=== PATIENT | male | born 1945 | race African-American/Black ===

== ENCOUNTER 2016-04-05 11:47 | Inpatient (IN) | payer OTHER ==
[2016-04-05 12:05] VITALS: BMI 22.1
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
[2016-04-05] MEDS ORDERED: NICOTINE POLACRILEX 2 MG GUM BC PRN (12:55)
[2016-04-05] MEDS ORDERED: hydrOXYzine PAMOATE 50 MG CAPSULE (FP) PO PRN (12:55)
[2016-04-05] MEDS ORDERED: chlordiazePOXIDE HCL 25 MG CAPSULE PO PRN (12:55)
[2016-04-05] MEDS ORDERED: ACETAMINOPHEN 325 MG TABLET (FP) PO PRN (12:55)
[2016-04-05] MEDS ORDERED: guaiFENesin/D-METHORPHAN HB 10 ML UNIT-DOSE CUPS PO PRN (12:55)
[2016-04-05] MEDS ORDERED: chlordiazePOXIDE HCL 25 MG CAPSULE PO ONE (12:55)
[2016-04-05] MEDS ORDERED: MAG HYDROX/AL HYDROX/SIMETH 30 ML UNIT-DOSE CUP PO PRN (12:55)
[2016-04-05] MEDS ORDERED: P-EPHED 60MG/TRIPROLIDI 2.5MG TABLET PO PRN (12:55)
[2016-04-05] MEDS ORDERED: IBUPROFEN 400 MG TABLET (FP) PO PRN (12:55)
[2016-04-05] MEDS ORDERED: MAGNESIUM CITRATE 300 ML BOTTLE PO PRN (12:55)
[2016-04-05] MEDS ORDERED: MENTHOL/PHENOL 1 EACH UD MM PRN (12:55)
[2016-04-05] MEDS ORDERED: LOPERAMIDE HCL 2 MG CAPSULE PO PRN (12:55)
[2016-04-05] MEDS ORDERED: MAGNESIUM HYDROX 2400MG/30ML ORAL SUSPENSION 30 ML CUP PO PRN (12:55)
[2016-04-05] MEDS: NICOTINE 21 MG/24 HOURS TOPICAL PATCH TD SCH (15:11)
[2016-04-05] MEDS: chlordiazePOXIDE HCL 25 MG CAPSULE PO SCH ×2 (17:20→22:26)
[2016-04-05 21:03] LABS: URINE APPEARANCE CLEAR; URINE BILIRUBIN NEGATIVE (NEGATIVE); URINE COLOR COLORLESS; URINE GLUCOSE (UA) NEGATIVE (NEGATIVE); URINE KETONE NEGATIVE (NEGATIVE); URINE LEUK ESTERASE NEGATIVE (NEGATIVE); URINE NITRITE NEGATIVE (NEGATIVE); URINE PROTEIN NEGATIVE (NEGATIVE); URINE UROBILINOGEN NEGATIVE E.U./dl (0.2-1.0)
[2016-04-05 21:28] LABS: URINE BLOOD 1+ (NEGATIVE)
[2016-04-05 21:34] LABS: URINE WBC <1 /hpf (3-5)
[2016-04-05] MEDS: diphenhydrAMINE HCL 50 MG CAPSULE PO PRN (22:26)
[2016-04-05] MEDS: THIAMINE HCL 100 MG TABLET (FP) PO SCH (22:26)
[2016-04-06] MEDS: chlordiazePOXIDE HCL 25 MG CAPSULE PO SCH ×4 (06:07→22:23)
[2016-04-06 09:56] LABS: MCH 32.6 pg (25.7-33.7); MCHC 33.3 g/dl (32.0-35.9); MEAN CELL VOLUME 98.1 fl (80-96); MEAN PLT VOLUME 9.1 fl (7.5-11.1); PLATELET COUNT 283 K/MM3 (134-434); RDW 15.2 % (11.9-15.9); WHITE BLOOD COUNT 8.1 K/mm3 (4.0-10.0)
[2016-04-06 10:01] LABS: ANION GAP 7 (8-16); CO2 29 mmol/L (21-32); GLUCOSE,RANDOM 109 mg/dL (74-106); SGOT/AST 41 U/L (15-37); SGPT/ALT 31 U/L (12-78)
[2016-04-06 10:03] LABS: ALK PHOS 69 U/L (45-117); BILIRUBIN,TOTAL 0.4 mg/dL (0.2-1.0); CREATININE 0.8 mg/dL (0.7-1.3); TOT PROT 6.6 g/dl (6.4-8.2)
[2016-04-06] MEDS: PRENATAL VITAMINS W/ FOLIC ACID TABLET (FP) PO SCH (10:12)
[2016-04-06] MEDS: NICOTINE 21 MG/24 HOURS TOPICAL PATCH TD SCH (10:12)
[2016-04-06 10:45] LABS: HIV 1 & 2 AB NEGATIVE; HIV 1 AGp24 NEGATIVE
--- NOTE | 2016-04-06 12:05 | EKG ---
Test Reason : Blood Pressure : / mmHG Vent. Rate : 077 BPM Atrial Rate : 077 BPM P-R Int : 118 ms QRS Dur : 084 ms QT Int : 386 ms P-R-T Axes : 024 055 058 degrees QTc Int : 436 ms NORMAL SINUS RHYTHM NORMAL ECG NO PREVIOUS ECGS AVAILABLE Confirmed by CARROL PALMER MD ([id number]) on 04/06/2016 12:05:29 PM Referred By: Confirmed By:CARROL PALMER MD
--- NOTE | 2016-04-06 14:25 | PN ---
[facility] CIWA - CIWA Score Nausea/Vomitin-Mild Nausea/No Vomiting Muscle Tremors: 3 Anxiety: 4-Mod. Anxious/Guarded Agitation: 3 Paroxysmal Sweats: 3 Orientation: 0-Oriented Tacttile Disturbances: 1-Very Mild Itch/Numbness Auditory Disturbances: 0-None Visual Disturbances: 0-None Headache: 0-None Present CIWA-Ar Total Score: 15 BHS Progress Note (SOAP) Subjective: Anxiety,tremors,sweating,interrupted sleep,restless Objective: 04/06/16 14:24 Vital Signs - 8 hr 04/06/16 04/06/16 06:25 10:25 Temperature 98.3 F 96.5 F L Pulse Rate 94 H 86 Respiratory 18 20 Rate Blood Pressure 115/62 123/70 Laboratory Last Values WBC 8.1 K/mm3 (4.0-10.0) 04/06/16 07:00 RBC 4.19 M/mm3 (4.00-5.60) 04/06/16 07:00 Hgb 13.7 GM/dL (11.7-16.9) 04/06/16 07:00 Hct 41.1 % (35.4-49) 04/06/16 07:00 MCV 98.1 fl (80-96) H 04/06/16 07:00 MCHC 33.3 g/dl (32.0-35.9) 04/06/16 07:00 RDW 15.2 % (11.9-15.9) 04/06/16 07:00 Plt Count 283 K/MM3 (134-434) D 04/06/16 07:00 MPV 9.1 fl (7.5-11.1) 04/06/16 07:00 Sodium 141 mmol/L (136-145) 04/06/16 07:00 Potassium 4.1 mmol/L (3.5-5.1) 04/06/16 07:00 Chloride 105 mmol/L (98-107) 04/06/16 07:00 Carbon Dioxide 29 mmol/L (21-32) 04/06/16 07:00 Anion Gap 7 (8-16) L 04/06/16 07:00 BUN 12 mg/dL (7-18) D 04/06/16 07:00 Creatinine 0.8 mg/dL (0.7-1.3) D 04/06/16 07:00 Creat Clearance w eGFR > 60 (>60) 04/06/16 07:00 Random Glucose 109 mg/dL (74-106) H D 04/06/16 07:00 Calcium 9.0 mg/dL (8.5-10.1) 04/06/16 07:00 Total Bilirubin 0.4 mg/dL (0.2-1.0) D 04/06/16 07:00 AST 41 U/L (15-37) H 04/06/16 07:00 ALT 31 U/L (12-78) D 04/06/16 07:00 Alkaline Phosphatase 69 U/L (45-117) 04/06/16 07:00 Total Protein 6.6 g/dl (6.4-8.2) 04/06/16 07:00 Albumin 3.0 g/dl (3.4-5.0) L 04/06/16 07:00 Urine Color Colorless 04/05/16 11:41 Urine Appearance Clear 04/05/16 11:41 Urine pH 5.0 (5.0-8.0) 04/05/16 11:41 Ur Specific [place] 1.003 (1.001-1.035) 04/05/16 11:41 Urine Protein Negative (NEGATIVE) 04/05/16 11:41 Urine Glucose (UA) Negative (NEGATIVE) 04/05/16 11:41 Urine Ketones Negative (NEGATIVE) 04/05/16 11:41 Urine Blood 1+ (NEGATIVE) H 04/05/16 11:41 Urine Nitrite Negative (NEGATIVE) 04/05/16 11:41 Urine Bilirubin Negative (NEGATIVE) 04/05/16 11:41 Urine Urobilinogen Negative E.U./dl (0.2-1.0) 04/05/16 11:41 Ur Leukocyte Esterase Negative (NEGATIVE) 04/05/16 11:41 Urine RBC None /hpf (0-3) 04/05/16 11:41 Urine WBC <1 /hpf (3-5) 04/05/16 11:41 RPR Titer Nonreactive (NONREACTIVE) 04/06/16 07:00 HIV 1&2 Antibody Screen Negative 04/06/16 07:00 HIV P24 Antigen Negative 04/06/16 07:00 labs noted Assessment: 02/13/17 14:24 withdrawal sx. Plan: continue detox
[2016-04-06] MEDS: THIAMINE HCL 100 MG TABLET (FP) PO SCH (22:23)
[2016-04-06] MEDS: diphenhydrAMINE HCL 50 MG CAPSULE PO PRN (22:24)
[2016-04-07] MEDS: chlordiazePOXIDE HCL 25 MG CAPSULE PO SCH ×2 (05:57→10:21)
[2016-04-07] MEDS: NICOTINE 21 MG/24 HOURS TOPICAL PATCH TD SCH (10:21)
[2016-04-07] MEDS: PRENATAL VITAMINS W/ FOLIC ACID TABLET (FP) PO SCH (10:21)
--- NOTE | 2016-04-07 10:25 | PN ---
[facility] CIWA - CIWA Score Nausea/Vomitin-No Nausea/No Vomiting Muscle Tremors: 3 Anxiety: 2 Agitation: 2 Paroxysmal Sweats: 3 Orientation: 0-Oriented Tacttile Disturbances: 1-Very Mild Itch/Numbness Auditory Disturbances: 0-None Visual Disturbances: 0-None Headache: 1-Very Mild CIWA-Ar Total Score: 12 S Progress Note (SOAP) Subjective: sweating,interrupted sleep,restless Objective: 04/07/16 10:24 Vital Signs - 8 hr 04/07/16 04/07/16 04/07/16 03:30 06:34 09:54 Temperature 97.3 F L 96.4 F L Pulse Rate 83 101 H Respiratory 18 18 20 Rate Blood Pressure 113/71 95/59 Laboratory Last Values WBC 8.1 K/mm3 (4.0-10.0) 04/06/16 07:00 RBC 4.19 M/mm3 (4.00-5.60) 04/06/16 07:00 Hgb 13.7 GM/dL (11.7-16.9) 04/06/16 07:00 Hct 41.1 % (35.4-49) 04/06/16 07:00 MCV 98.1 fl (80-96) H 04/06/16 07:00 MCHC 33.3 g/dl (32.0-35.9) 04/06/16 07:00 RDW 15.2 % (11.9-15.9) 04/06/16 07:00 Plt Count 283 K/MM3 (134-434) D 04/06/16 07:00 MPV 9.1 fl (7.5-11.1) 04/06/16 07:00 Sodium 141 mmol/L (136-145) 04/06/16 07:00 Potassium 4.1 mmol/L (3.5-5.1) 04/06/16 07:00 Chloride 105 mmol/L (98-107) 04/06/16 07:00 Carbon Dioxide 29 mmol/L (21-32) 04/06/16 07:00 Anion Gap 7 (8-16) L 04/06/16 07:00 BUN 12 mg/dL (7-18) D 04/06/16 07:00 Creatinine 0.8 mg/dL (0.7-1.3) D 04/06/16 07:00 Creat Clearance w eGFR > 60 (>60) 04/06/16 07:00 Random Glucose 109 mg/dL (74-106) H D 04/06/16 07:00 Calcium 9.0 mg/dL (8.5-10.1) 04/06/16 07:00 Total Bilirubin 0.4 mg/dL (0.2-1.0) D 04/06/16 07:00 AST 41 U/L (15-37) H 04/06/16 07:00 ALT 31 U/L (12-78) D 04/06/16 07:00 Alkaline Phosphatase 69 U/L (45-117) 04/06/16 07:00 Total Protein 6.6 g/dl (6.4-8.2) 04/06/16 07:00 Albumin 3.0 g/dl (3.4-5.0) L 04/06/16 07:00 Urine Color Colorless 04/05/16 11:41 Urine Appearance Clear 04/05/16 11:41 Urine pH 5.0 (5.0-8.0) 04/05/16 11:41 Ur Specific [place] 1.003 (1.001-1.035) 04/05/16 11:41 Urine Protein Negative (NEGATIVE) 04/05/16 11:41 Urine Glucose (UA) Negative (NEGATIVE) 04/05/16 11:41 Urine Ketones Negative (NEGATIVE) 04/05/16 11:41 Urine Blood 1+ (NEGATIVE) H 04/05/16 11:41 Urine Nitrite Negative (NEGATIVE) 04/05/16 11:41 Urine Bilirubin Negative (NEGATIVE) 04/05/16 11:41 Urine Urobilinogen Negative E.U./dl (0.2-1.0) 04/05/16 11:41 Ur Leukocyte Esterase Negative (NEGATIVE) 04/05/16 11:41 Urine RBC None /hpf (0-3) 04/05/16 11:41 Urine WBC <1 /hpf (3-5) 04/05/16 11:41 RPR Titer Nonreactive (NONREACTIVE) 04/06/16 07:00 HIV 1&2 Antibody Screen Negative 04/06/16 07:00 HIV P24 Antigen Negative 04/06/16 07:00 labs noted Assessment: 04/07/16 10:25 withdrawal sx. Plan: continue detox
[2016-04-07] MEDS: chlordiazePOXIDE 5 MG CAPSULE PO SCH ×2 (17:25→22:19)
[2016-04-07] MEDS: diphenhydrAMINE HCL 50 MG CAPSULE PO PRN (22:19)
[2016-04-07] MEDS: THIAMINE HCL 100 MG TABLET (FP) PO SCH (22:19)
[2016-04-08] MEDS: chlordiazePOXIDE 5 MG CAPSULE PO SCH ×2 (06:22→10:11)
[2016-04-08] MEDS: PRENATAL VITAMINS W/ FOLIC ACID TABLET (FP) PO SCH (10:11)
[2016-04-08] MEDS: NICOTINE 21 MG/24 HOURS TOPICAL PATCH TD SCH (10:11)
--- NOTE | 2016-04-08 16:30 | PN ---
BHS Progress Note (SOAP) Subjective: Sweating,interrupted sleep,restless Objective: 04/08/16 16:29 Vital Signs - 8 hr 04/08/16 04/08/16 10:17 13:37 Temperature 96.8 F L 96.1 F L Pulse Rate 106 H 100 H Respiratory 20 20 Rate Blood Pressure 130/72 117/73 Laboratory Tests 04/05/16 04/06/16 04/06/16 11:41 07:00 07:00 WBC 8.1 RBC 4.19 Hgb 13.7 Hct 41.1 MCV 98.1 H MCHC 33.3 RDW 15.2 Plt Count 283 D MPV 9.1 Sodium Potassium Chloride Carbon Dioxide Anion Gap BUN Creatinine Creat Clearance w eGFR Random Glucose Calcium Total Bilirubin AST ALT Alkaline Phosphatase Total Protein Albumin Urine Color Colorless Urine Appearance Clear Urine pH 5.0 Ur Specific [place] 1.003 Urine Protein Negative Urine Glucose (UA) Negative Urine Ketones Negative Urine Blood 1+ H Urine Nitrite Negative Urine Bilirubin Negative Urine Urobilinogen Negative Ur Leukocyte Esterase Negative Urine RBC None Urine WBC <1 RPR Titer HIV 1&2 Antibody Screen Negative HIV P24 Antigen Negative 04/06/16 04/06/16 07:00 07:00 WBC RBC Hgb Hct MCV MCHC RDW Plt Count MPV Sodium 141 Potassium 4.1 Chloride 105 Carbon Dioxide 29 Anion Gap 7 L BUN 12 D Creatinine 0.8 D Creat Clearance w eGFR > 60 Random Glucose 109 H D Calcium 9.0 Total Bilirubin 0.4 D AST 41 H ALT 31 D Alkaline Phosphatase 69 Total Protein 6.6 Albumin 3.0 L Urine Color Urine Appearance Urine pH Ur Specific [place] Urine Protein Urine Glucose (UA) Urine Ketones Urine Blood Urine Nitrite Urine Bilirubin Urine Urobilinogen Ur Leukocyte Esterase Urine RBC Urine WBC RPR Titer Nonreactive HIV 1&2 Antibody Screen HIV P24 Antigen labs noted Assessment: 04/08/16 16:29 withdrawal sx. Plan: continue detox
[2016-04-08] MEDS: chlordiazePOXIDE HCL 10 MG CAPSULE PO SCH ×2 (16:59→22:21)
[2016-04-08] MEDS: THIAMINE HCL 100 MG TABLET (FP) PO SCH (22:21)
[2016-04-08] MEDS: diphenhydrAMINE HCL 50 MG CAPSULE PO PRN (22:21)
[2016-04-09] MEDS: chlordiazePOXIDE HCL 10 MG CAPSULE PO SCH (05:39)
[2016-04-09 06:44] VITALS: BP 134/74; PULSE 93; TEMP 97.1
--- NOTE | 2016-04-09 13:47 | DS ---
[facility] Detox Discharge Summary Admission Date: 04/05/16 Discharge Date: 04/09/16 - History Present History: Alcohol Dependence, Cocaine Dependence Pertinent Past History: Hep C - Physical Exam Results Vital Signs: Vital Signs Temperature 97.1 F L 04/09/16 06:44 Pulse Rate 93 H 04/09/16 06:44 Respiratory Rate 18 04/09/16 06:44 Blood Pressure 134/74 04/09/16 06:44 O2 Sat by Pulse Oximetry (%) Pertinent Admission Physical Exam Findings: Withdrawal sx. Laboratory Tests 04/05/16 04/06/16 04/06/16 11:41 07:00 07:00 WBC 8.1 RBC 4.19 Hgb 13.7 Hct 41.1 MCV 98.1 H MCHC 33.3 RDW 15.2 Plt Count 283 D MPV 9.1 Sodium Potassium Chloride Carbon Dioxide Anion Gap BUN Creatinine Creat Clearance w eGFR Random Glucose Calcium Total Bilirubin AST ALT Alkaline Phosphatase Total Protein Albumin Urine Color Colorless Urine Appearance Clear Urine pH 5.0 Ur Specific [place] 1.003 Urine Protein Negative Urine Glucose (UA) Negative Urine Ketones Negative Urine Blood 1+ H Urine Nitrite Negative Urine Bilirubin Negative Urine Urobilinogen Negative Ur Leukocyte Esterase Negative Urine RBC None Urine WBC <1 RPR Titer HIV 1&2 Antibody Screen Negative HIV P24 Antigen Negative 04/06/16 04/06/16 07:00 07:00 WBC RBC Hgb Hct MCV MCHC RDW Plt Count MPV Sodium 141 Potassium 4.1 Chloride 105 Carbon Dioxide 29 Anion Gap 7 L BUN 12 D Creatinine 0.8 D Creat Clearance w eGFR > 60 Random Glucose 109 H D Calcium 9.0 Total Bilirubin 0.4 D AST 41 H ALT 31 D Alkaline Phosphatase 69 Total Protein 6.6 Albumin 3.0 L Urine Color Urine Appearance Urine pH Ur Specific [place] Urine Protein Urine Glucose (UA) Urine Ketones Urine Blood Urine Nitrite Urine Bilirubin Urine Urobilinogen Ur Leukocyte Esterase Urine RBC Urine WBC RPR Titer Nonreactive HIV 1&2 Antibody Screen HIV P24 Antigen labs noted - Treatment Hospital Course: Detox Protocol Followed, Detoxed Safely, Responded well, Discharged Condition Good, Rehab Referral Accepted - Medication Discharge Medications: Ambulatory Orders NK [No Known Home Medication] 04/04/13 - Diagnosis (1) Alcohol dependence with uncomplicated withdrawal Status: Acute (2) Cocaine dependence, uncomplicated Status: Acute (3) Nicotine dependence Status: Chronic Qualifiers: Nicotine product type: cigarettes Substance use status: uncomplicated Qualified Code(s): F17.210 - Nicotine dependence, cigarettes, uncomplicated (4) Hep C w/o coma, chronic Status: Acute - AMA Did Patient Leave Against Medical Advice: No
== END 2016-04-09 07:07 | disposition home or self-care (01) | DRG 897 ==
LOC: YASAS 11:47 → Y3N 14:20
PROVIDERS: ADMIT Internal Medicine; ATTEND Internal Medicine
PROC: HZ2ZZZZ Detoxification Services for Substance Abuse Treatment (ICD-10-PCS; principal; 2016-04-09)
DX: F19.230 Other psychoactive substance dependence with withdrawal, uncomplicated (principal); F14.20 Cocaine dependence, uncomplicated; F10.230 Alcohol dependence with withdrawal, uncomplicated; F17.210 Nicotine dependence, cigarettes, uncomplicated; B18.2 Chronic viral hepatitis C
CPT/HCPCS: 36415; 80053; 81003; 81015; 85027; 86593; 87389; 93005; 93010